=== PATIENT | female | born 1950 | race African-American/Black ===

== ENCOUNTER 2025-03-15 16:59 | Emergency (ER) | payer MEDICAID, MEDICARE ==
[~2025-03-15] VITALS: Ht 172.7 cm; Wt 109.0 kg
[2025-03-15 17:04] VITALS: PULSE 98; RESP 16; O2SAT 98
[2025-03-15 17:19] VITALS: BP 150/60; TEMP 36.8; O2SAT 96
[2025-03-15] MEDS ORDERED: CEPH500T MT (20:36)
[2025-03-15] MEDS ORDERED: MUPI1OIN4 TP (20:36)
== END 2025-03-15 20:52 | disposition home or self-care (01) ==
LOC: ER 16:59
DX: S90.822A Blister (nonthermal), left foot, initial encounter (principal); L03.90 Cellulitis, unspecified; I10 Essential (primary) hypertension; E78.00 Pure hypercholesterolemia, unspecified; W57.XXXA Bitten or stung by nonvenomous insect and other nonvenomous arthropods, initial encounter; Y93.89 Activity, other specified; Y92.89 Other specified places as the place of occurrence of the external cause; Y99.8 Other external cause status
CPT/HCPCS: 99283